=== PATIENT | male | born 1945 | race Caucasian/White ===

== ENCOUNTER 2017-05-04 06:47 | Emergency (ER) | payer MEDICARE, OTHER ==
[~2017-05-04] VITALS: Ht 172.7 cm; Wt 110.0 kg
[~2017-05-04 06:47] MED LIST: Z.0.NO CURRENT MEDS
[2017-05-04 06:57] VITALS: BP 208/109; PULSE 59; RESP 16; TEMP 98.4; O2SAT 96
[2017-05-04] MEDS ORDERED: FLUO40CA PO (07:14)
[2017-05-04] MEDS ORDERED: FINA5TAB2 PO (07:14)
[2017-05-04] MEDS ORDERED: MSM1000C PO (07:14)
[2017-05-04] MEDS ORDERED: LISI10TA PO (07:14)
[2017-05-04] MEDS ORDERED: MELO15TA20 PO (07:14)
[2017-05-04] MEDS ORDERED: PROSCAP3 PO (07:14)
[2017-05-04 07:17] VITALS: BP 177/105; PULSE 62
[2017-05-04] MEDS ORDERED: SODIUM CHLORIDE 0.9% FLUSH 5 ML FLUSH IV FLUSH PRN (07:30)
--- NOTE | 2017-05-04 07:31 | PD ---
HPI Chief Complaint: Hypertension Time Seen by Provider: 07:28 Travel History International Travel<30 days: No Contact w/Intl Traveler<30days: No Traveled to known affect area: No History of Present Illness HPI Patient is a 71-year-old male with a history of high blood pressure presents emergency department with fairly vague symptoms of fatigue as well as vertiginous-like episode this morning. Patient states that he recently moved down here from [place] that she spends half the year here, states that when he left [place] the left overs prescriptions there and not been taking his blood pressure medication. He still states she's been taking his prostate medicine as well as his antidepressant. He states over the summer he had been feeling fatigued and had a workup with his primary care physician which was normal. Also states that he been having some intermittent sharp pains in his upper extremities as well as left upper extremity which she attributed to "sciatica". He states that he has been feeling a little off over the past few days but this morning when he got up he stumbled about for a few minutes. He states the only symptom he has now is just a mild feeling of fogginess in his head. 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) Genitourinary: Yes (PROSTATE) Hypertension: Yes Immunizations Current: Yes Tetanus Vaccination: Unknown Past Surgical History Tonsillectomy: Yes (1952) Social History Alcohol Use: No Tobacco Use: No (QUIT) Substance Use: No Allergies-Medications (Allergen,Severity, Reaction): Coded Allergies: tamsulosin (Verified Adverse Reaction, Intermediate, dizzy/lightheaded, ) Reported Meds & Prescriptions Reported Meds & Active Scripts Active Hydrochlorothiazide 12.5 Mg Tab 12.5 Mg PO DAILY Lisinopril 10 Mg Tab 10 Mg PO DAILY Reported Prostate Therapy Complex (Misc Natural Products) 1 Cap 1 Tab PO DAILY Msm (Methylsulfonylmethane) 1,000 Mg Cap 2,000 Mg PO DAILY Fluoxetine (Fluoxetine HCl) 40 Mg Cap 40 Cap PO DAILY Meloxicam 15 Mg Tab 15 Mg PO DAILY Finasteride 5 Mg Tab 5 Mg PO DAILY Do not crush. Review of Systems Except as stated in HPI: all other systems reviewed are Neg Physical Exam Narrative GENERAL: Well-developed well-nourished, quite pleasant male in no obvious distress. SKIN: Focused skin assessment warm/dry. HEAD: Atraumatic. Normocephalic. EYES: Pupils equal and round. No scleral icterus. No injection or drainage. ENT: No nasal bleeding or discharge. Mucous membranes pink and moist. NECK: Trachea midline. No JVD. CARDIOVASCULAR: Regular rate and rhythm. No murmur appreciated. RESPIRATORY: No accessory muscle use. Clear to auscultation. Breath sounds equal bilaterally. GASTROINTESTINAL: Abdomen soft, non-tender, nondistended. Hepatic and splenic margins not palpable. MUSCULOSKELETAL: No obvious deformities. No clubbing. No cyanosis. No edema. NEUROLOGICAL: Awake and alert. Cranial nerves II through XII are grossly intact and nonfocal, 5 out of 5 strength in all 4 extremity's, cerebellar testing with evcnde-nelb-[id number] and heel vazquez testing negative, and relates with an even narrow based gait.. PSYCHIATRIC: Appropriate mood and affect; insight and judgment normal. Data Data Last Documented VS Vital Signs Date Time Temp Pulse Resp B/P (MAP) Pulse Ox O2 Delivery O2 Flow Rate FiO2 05/04/17 08:56 05/04/17 08:35 56 05/04/17 07:43 16 96 Room Air 05/04/17 06:57 98.4 Orders Orders Complete Blood Count With Diff (05/04/17 07:28) Comprehensive Metabolic Panel (05/04/17 07:28) Prothrombin Time / Inr (Pt) (05/04/17 07:28) Act Partial Throm Time (Ptt) (05/04/17 07:28) Troponin I (05/04/17 07:28) Thyroid Stimulating Hormone (05/04/17 07:28) Chest, Single Ap (05/04/17 07:28) Ct Brain W/O Iv Contrast(Rout) (05/04/17 07:28) Blood Glucose (05/04/17 07:28) Ecg Monitoring (05/04/17 07:28) Iv Access Insert/Monitor (05/04/17 07:28) Oximetry (05/04/17 07:28) Sodium Chloride 0.9% Flush (Ns Flush) (05/04/17 07:30) Electrocardiogram (05/04/17 ) Ed Discharge Order (05/04/17 08:46) Labs Laboratory Tests Test 05/04/17 07:43 White Blood Count 4.0 TH/MM3 Red Blood Count 5.04 MIL/MM3 Hemoglobin 14.8 GM/DL Hematocrit 44.1 % Mean Corpuscular Volume 87.5 FL Mean Corpuscular Hemoglobin 29.4 PG Mean Corpuscular Hemoglobin Concent 33.6 % Red Cell Distribution Width 12.9 % Platelet Count 201 TH/MM3 Mean Platelet Volume 7.1 FL Neutrophils (%) (Auto) 44.8 % Lymphocytes (%) (Auto) 39.4 % Monocytes (%) (Auto) 11.8 % Eosinophils (%) (Auto) 3.1 % Basophils (%) (Auto) 0.9 % Neutrophils # (Auto) 1.8 TH/MM3 Lymphocytes # (Auto) 1.6 TH/MM3 Monocytes # (Auto) 0.5 TH/MM3 Eosinophils # (Auto) 0.1 TH/MM3 Basophils # (Auto) 0.0 TH/MM3 CBC Comment DIFF FINAL Differential Comment Prothrombin Time 10.3 SEC Prothromb Time International Ratio 0.9 RATIO Activated Partial Thromboplast Time 27.2 SEC Blood Urea Nitrogen 21 MG/DL Creatinine 1.20 MG/DL Random Glucose 96 MG/DL Total Protein 6.7 GM/DL Albumin 3.1 GM/DL Calcium Level 7.9 MG/DL Alkaline Phosphatase 52 U/L Aspartate Amino Transf (AST/SGOT) 14 U/L Alanine Aminotransferase (ALT/SGPT) 23 U/L Total Bilirubin 0.3 MG/DL Sodium Level 139 MEQ/L Potassium Level 4.2 MEQ/L Chloride Level 109 MEQ/L Carbon Dioxide Level 23.9 MEQ/L Anion Gap 6 MEQ/L Estimat Glomerular Filtration Rate 60 ML/MIN Troponin I LESS THAN 0.02 NG/ML Thyroid Stimulating Hormone 3rd Gen 2.120 uIU/ML [facility] Medical Decision Making Medical Screen Exam Complete: Yes Emergency Medical Condition: Yes Differential Diagnosis Medication refill, vertiginous symptoms, fatigue, depression unlikely, suicidal ideation highly unlikely, acute CVA highly unlikely. Narrative Course Patient roomed in emergency department elect lites showing only minimal abnormality EKG showed no signs of ischemia chest x-ray and CT head were negative. The patient ambulated to the bathroom multiple times. Patient's symptoms have been for the past few months and seemed to be fairly benign. I will refill his blood pressure medication, he has been off of his fluoxetine for 3 weeks now and wonders if he needs to go back on it and at this point given he is not having any symptoms of depression I think is working well for him to stop for the time being and follow up with his primary care physician. There is no indication further workup at this time and he stable for discharge. Diagnosis Primary Impression: Generalized weakness Additional Impression: Dizziness and giddiness Additional Instructions: Follow up with your primary care physician today. Med/Other Pt SpecificInfo: Prescription(s) given Scripts Hydrochlorothiazide (Hydrochlorothiazide) 12.5 Mg Tab 12.5 MG PO DAILY, #30 TAB 0 Refills Prov: Chidi Post MD 05/04/17 Lisinopril (Lisinopril) 10 Mg Tab 10 MG PO DAILY, #30 TAB 0 Refills Prov: Chidi Post MD 05/04/17 Disposition: 01 DISCHARGE HOME Condition: Stable Chidi Post MD May 04, 2017 07:31
[2017-05-04 07:32] VITALS: BP 194/112; PULSE 58
[2017-05-04 07:43] VITALS: RESP 16; O2SAT 96
[2017-05-04 07:53] LABS: AUTOMATED NEUTROPHIL # 1.8 TH/MM3 (1.8-7.7); BASOPHIL % 0.9 % (0.0-2.0); EOSINOPHIL # 0.1 TH/MM3 (0-0.4); EOSINOPHIL % 3.1 % (0.0-4.0); HEMATOCRIT 44.1 % (39.0-51.0); HEMO FLAGS DIFF FINAL; LYMPH % 39.4 % (9.0-44.0); LYMPHOCYTE # 1.6 TH/MM3 (1.0-4.8); MEAN CELL VOLUME 87.5 FL (80.0-100.0); MEAN CORPUSCULAR HEMOGLOBIN 29.4 PG (27.0-34.0); MEAN CORPUSCULAR HGB CONC 33.6 % (32.0-36.0); MONO % 11.8 % (0.0-8.0); NEUT % 44.8 % (16.0-70.0); PLATELET COUNT 201 TH/MM3 (150-450); RED BLOOD COUNT 5.04 MIL/MM3 (4.50-5.90); RED CELL DISTRIBUTION WIDTH 12.9 % (11.6-17.2)
[2017-05-04 08:00] LABS: CHLORIDE 109 MEQ/L (98-107); POTASSIUM 4.2 MEQ/L (3.5-5.1); SODIUM (NA) 139 MEQ/L (136-145)
[2017-05-04 08:04] LABS: ANION GAP 6 MEQ/L (5-15); APTT (PATIENT) 27.2 SEC (24.3-30.1); BICARBONATE 23.9 MEQ/L (21.0-32.0); BLOOD UREA NITROGEN 21 MG/DL (7-18); INTERNATIONAL NORMALIZED RATIO 0.9 RATIO; PROTHROMBIN TIME - PATIENT 10.3 SEC (9.8-11.6)
[2017-05-04 08:07] LABS: ALT (GPT) 23 U/L (12-78); AST (GOT) 14 U/L (15-37); GLOMERULAR FILTRATION RATE 60 ML/MIN (>89)
[2017-05-04 08:09] LABS: TOTAL BILIRUBIN ADULT 0.3 MG/DL (0.2-1.0)
--- NOTE | 2017-05-04 08:09 | RADRPT ---
EXAM DATE/TIME: 05/04/2017 07:41 [facility] COMPARISON: No previous studies available for comparison. INDICATIONS : Dizziness and hypertension. RADIATION DOSE: 60.71 CTDIvol (mGy) MEDICAL HISTORY : Hypertension. SURGICAL HISTORY : Tonsillectomy. ENCOUNTER: Initial ACUITY: 1 day PAIN SCALE: 0/10 LOCATION: cranial TECHNIQUE: Multiple contiguous axial images were obtained of the head. Using automated exposure control and adj ustment of the mA and/or kV according to patient size, radiation dose was kept as low as reasonably a chievable to obtain optimal diagnostic quality images. DICOM format image data is available electro nically for review and comparison. FINDINGS: CEREBRUM: The ventricles are normal for age. No evidence of midline shift, mass lesion, hemorrhage or acute in farction. No extra-axial fluid collections are seen. POSTERIOR FOSSA: The cerebellum and brainstem are intact. The 4th ventricle is midline. The cerebellopontine angle i s unremarkable. EXTRACRANIAL: The visualized portion of the orbits is intact. SKULL: The calvaria is intact. No evidence of skull fracture. CONCLUSION: 1. No acute intracranial abnormality. Ed Salcedo MD on May 04, 2017 at 8:07 Board Certified Radiologist. This report was verified electronically.
[2017-05-04 08:10] LABS: ALKALINE PHOSPHATASE 52 U/L (45-117)
--- NOTE | 2017-05-04 08:12 | RADRPT ---
EXAM DATE/TIME: 05/04/2017 07:50 [facility] COMPARISON: No previous studies available for comparison. INDICATIONS : Syncope. MEDICAL HISTORY : Hypertension. SURGICAL HISTORY : None. ENCOUNTER: Initial ACUITY: 1 day PAIN SCORE: 0/10 LOCATION: Bilateral chest FINDINGS: A single view of the chest demonstrates the lungs to be symmetrically aerated without evidence of mas s, infiltrate or effusion. The cardiomediastinal contours are unremarkable. Osseous structures are intact. CONCLUSION: 1. Negative portable chest. Ed Salcedo MD on May 04, 2017 at 8:08 Board Certified Radiologist. This report was verified electronically.
[2017-05-04 08:20] VITALS: BP 190/111; PULSE 60
[2017-05-04 08:35] VITALS: BP 164/83; PULSE 56
[2017-05-04] MEDS ORDERED: HYDR12.56 PO (08:45)
[2017-05-04] MEDS ORDERED: LISI10TA3 PO (08:45)
--- NOTE | 2017-05-05 18:23 | EKG ---
Date Performed: 05/04/2017 Time Performed: 07:01:27 PTAGE: 71 years EKG: Normal Sinus rhythm Slight ST elevation inferiorly Early repolarization Nondiagnostic T-waves NO PREVIOUS TRACING DOCTOR: Efrain Wang Interpretating Date/Time 05/05/2017 18:22:54
== END 2017-05-04 08:57 | disposition home or self-care (01) ==
LOC: PHED 06:47
DX: R53.1 Weakness (principal); R42 Dizziness and giddiness; I10 Essential (primary) hypertension; F32.9 Major depressive disorder, single episode, unspecified; M06.9 Rheumatoid arthritis, unspecified; M19.90 Unspecified osteoarthritis, unspecified site
CPT/HCPCS: 70450; 71010; 80053; 84443; 84484; 85025; 85610; 85730; 93005; 99285